=== PATIENT | male | born 1980 | race Caucasian/White ===

== ENCOUNTER 2025-05-29 13:10 | Observation (INO) | payer OTHER ==
[2025-05-29 13:23] VITALS: BMI 46.5
[2025-05-29] MEDS ORDERED: ACETAMINOPHEN INJECTION 100 ML ONE (13:59)
[2025-05-29] MEDS ORDERED: FAMOTIDINE 20 MG/50 ML IVPB 20 MG/50 ML MG IVPB ONE (14:00)
[2025-05-29] MEDS ORDERED: ONDANSETRON 4 MG/2 ML VIAL ONE ×2 (14:00→17:26)
[2025-05-29] MEDS: SODIUM CHLORIDE 1,000 ML IV STA ×2 (14:15→15:55)
[2025-05-29] MEDS: FAMOTIDINE 20 MG/50 ML IVPB 20 MG/50 ML MG IVPB ONE (14:15)
[2025-05-29] MEDS: ONDANSETRON 4 MG/2 ML VIAL IVPUSH ONE (14:15)
[2025-05-29] MEDS: ACETAMINOPHEN 1000 MG/100 ML BAG IVPB ONE (14:15)
[2025-05-29 14:23] LABS: ABSOLUTE IMMATURE GRANULOCYTES 0.05 x10^3/uL (0.0-0.031); BASOPHILS # 0.07 x10^3/uL (0.01-0.08); EOSINOPHIL % 1.7 % (0.8-7.0); EOSINOPHILS # 0.18 x10^3/uL (0.04-0.54); MCHC 32.2 g/dl (32.3-36.5); MEAN CELL VOLUME 84.3 fl (79.0-92.2); MEAN PLT VOLUME 9.9 fl (9.4-12.4); MONOCYTE # 0.47 x10^3/uL (0.30-0.82); MONOCYTE % 4.4 % (5.3-12.2); RDW 15.2 % (12.1-15.9)
[2025-05-29 14:47] LABS: CO2 25.0 mmol/L (21-32); GLUCOSE,RANDOM 127.0 mg/dL (74-106)
[2025-05-29 14:50] LABS: CREATININE 0.8 mg/dL (0.55-1.3); SGPT/ALT 83.0 U/L (13-61)
[2025-05-29 14:51] LABS: SGOT/AST 53.0 U/L (15-37)
[2025-05-29 14:52] LABS: TOT PROT 7.9 g/dl (6.4-8.2)
[2025-05-29 14:53] LABS: ALK PHOS 114.0 U/L (45-117)
[2025-05-29] MEDS ORDERED: KETOROLAC TROMETHAMINE 30 MG/1 ML VIAL ONE (15:41)
[2025-05-29 15:42] LABS: HCV DIAGNOSTIC IN-HOUSE W/RFLX NON-REACTIVE (NONREACTIVE); HIV INTERPRETATION NEGATIVE (NEGATIVE)
[2025-05-29] MEDS ORDERED: METOCLOPRAMIDE HCL INJECTION 10 MG/2 ML VIAL ONE (15:42)
[2025-05-29] MEDS: METOCLOPRAMIDE HCL INJECTION 10 MG/2 ML VIAL IVPUSH ONE (15:55)
[2025-05-29] MEDS: KETOROLAC TROMETHAMINE 30 MG/1 ML VIAL IVPUSH ONE (15:55)
[2025-05-29] MEDS ORDERED: BUPIVACAINE HCL/PF 0.25% (2.5MG/ML) 10 ML VIAL ONE (16:14)
[2025-05-29] MEDS ORDERED: PIPERACILLIN/TAZOB 3.375 GM 3.375 GM/50 ML BAG IVPB ONE (16:17)
[2025-05-29] MEDS: PIPERACILLIN/TAZOB 3.375 GM 3.375 GM in DEXTROSE 5%-WATER - 50 ML IVPB ONE (16:32)
[2025-05-29 16:57] LABS: INR 0.99 (0.83-1.09); PROTHROMBIN TIME (PATIENT) 10.9 SEC (9.7-13.0)
[2025-05-29 16:59] LABS: ACTIVATED PTT 33.8 SECONDS (25.2-36.5)
[2025-05-29] MEDS ORDERED: LACTATED RINGERS SOLUTION 1,000 ML/1,000 ML INFUS.BAG IV SCH (17:15)
[2025-05-29] MEDS ORDERED: ONDANSETRON 4 MG/2 ML VIAL IVPUSH PRN ×2 (17:17→19:25)
[2025-05-29] MEDS ORDERED: PROPOFOL 40 ML ONE (17:20)
[2025-05-29] MEDS ORDERED: ROCURONIUM BROMIDE 50 MG/5 ML SYRINGE ONE (17:21)
[2025-05-29] MEDS ORDERED: MIDAZOLAM HCL 2 MG/2 ML SINGLE DOSE VIAL ONE (17:22)
[2025-05-29] MEDS ORDERED: LIDOCAINE HCL 2% 100 MG/5 ML DISP.SYRIN ONE (17:26)
[2025-05-29] MEDS ORDERED: DEXAMETHASONE SOD PHOSPHATE 4 MG/1 ML VIAL ONE ×2 (17:26→17:35)
[2025-05-29] MEDS ORDERED: LACTATED RINGERS SOLUTION 1,000 ML IV SCH (17:30)
[2025-05-29] MEDS ORDERED: HEPARIN NA (PORCINE) 5,000 UNITS/ML 1ML VIAL ONE (17:37)
[2025-05-29] MEDS: BUPIVACAINE HCL/PF 2.5 MG/ML - 30 ML VIAL IJ ONE (17:45)
[2025-05-29] MEDS ORDERED: cefOXitin SODIUM 2 GM VIAL (RESTRICTED TO ID) IVPB ONE (17:47)
[2025-05-29] MEDS ORDERED: CEFOXITIN SODIUM 1 GM IVPB ONE (17:47)
[2025-05-29] MEDS: cefOXitin SODIUM 2 GM VIAL (RESTRICTED TO ID) IVPB ONE (17:51)
[2025-05-29] MEDS ORDERED: SUGAMMADEX SODIUM 200 MG/2 ML VIAL ONE (18:09)
[2025-05-29] MEDS ORDERED: SEVOFLURANE 250 ML BTL ONE (18:12)
[2025-05-29] MEDS: ACETAMINOPHEN 1000 MG/100 ML BAG IVPB SCH (20:39)
[2025-05-29] MEDS: LACTATED RINGERS SOLUTION 1,000 ML/1,000 ML INFUS.BAG IV SCH (20:41)
[2025-05-29] MEDS ORDERED: PIPERACILLIN/TAZOB 3.375 GM 3.375 GM in DEXTROSE 5%-WATER - 50 ML IVPB SCH (21:00)
[2025-05-29] MEDS: KETOROLAC TROMETHAMINE 30 MG/1 ML VIAL IVPUSH SCH (23:34)
[2025-05-30 08:45] LABS: ABSOLUTE IMMATURE GRANULOCYTES 0.04 x10^3/uL (0.0-0.031); BASOPHILS # 0.02 x10^3/uL (0.01-0.08); EOSINOPHIL % 0.0 % (0.8-7.0); EOSINOPHILS # 0.00 x10^3/uL (0.04-0.54); MCHC 31.8 g/dl (32.3-36.5); MEAN CELL VOLUME 84.0 fl (79.0-92.2); MEAN PLT VOLUME 10.3 fl (9.4-12.4); MONOCYTE # 0.57 x10^3/uL (0.30-0.82); MONOCYTE % 5.2 % (5.3-12.2); RDW 15.2 % (12.1-15.9)
[2025-05-30 09:52] VITALS: RESP 20
[2025-05-30] MEDS: ACETAMINOPHEN 500 MG TABLET (FP) PO SCH (09:59)
[2025-05-30 11:20] LABS: CO2 26.0 mmol/L (21-32); GLUCOSE,RANDOM 116.0 mg/dL (74-106)
[2025-05-30 11:22] LABS: CREATININE 0.7 mg/dL (0.55-1.3); SGPT/ALT 72.0 U/L (13-61)
[2025-05-30 11:23] LABS: SGOT/AST 40.0 U/L (15-37)
[2025-05-30 11:24] LABS: TOT PROT 6.6 g/dl (6.4-8.2)
[2025-05-30] MEDS: SODIUM CHLORIDE 1,000 ML IV STA (11:29)
[2025-05-30 11:41] LABS: ALK PHOS 82.0 U/L (45-117)
[2025-05-30 14:40] VITALS: BP 112/63; PULSE 65; TEMP 98.2
== END 2025-05-30 17:33 | disposition home or self-care (01) ==
LOC: JER 13:10 → INTOOBSV 16:33 → JERBED 16:33 → UNDOADMOB 16:33 → JERBED 17:07 → J8W 20:18
PROVIDERS: ADMIT Student in an Organized Health Care Education/Training Program; ATTEND Student in an Organized Health Care Education/Training Program
PROC: 3E03329 Introduction of Other Anti-infective into Peripheral Vein, Percutaneous Approach (ICD-10-PCS; 2025-05-29)
PROC: 3E033GC Introduction of Other Therapeutic Substance into Peripheral Vein, Percutaneous Approach (ICD-10-PCS; 2025-05-29)
PROC: 3E0333Z Introduction of Anti-inflammatory into Peripheral Vein, Percutaneous Approach (ICD-10-PCS; 2025-05-29)
PROC: 3E0337Z Introduction of Electrolytic and Water Balance Substance into Peripheral Vein, Percutaneous Approach (ICD-10-PCS; 2025-05-29)
PROC: 0FT44ZZ Resection of Gallbladder, Percutaneous Endoscopic Approach (ICD-10-PCS; 2025-05-29)
PROC: 3E033NZ Introduction of Analgesics, Hypnotics, Sedatives into Peripheral Vein, Percutaneous Approach (ICD-10-PCS; principal; 2025-05-29 18:00)
DX: K81.0 Acute cholecystitis (principal); E66.9 Obesity, unspecified; Z87.891 Personal history of nicotine dependence; K76.0 Fatty (change of) liver, not elsewhere classified
CPT/HCPCS: 36415; 76705-TC; 80053; 83690; 83735; 85025; 85610; 85730; 86803; 86850; 86900; 86901; 87389; 88304-TC; 93005; 93010; 94760; 96361; 96365; 96367; 96375; 96376; 99285-25; G0378